=== PATIENT | male | born 1990 | race Caucasian/White ===

== ENCOUNTER 2020-09-28 08:06 | Inpatient (IN) | payer OTHER ==
[~2020-09-28] VITALS: Ht 182.9 cm; Wt 97.7 kg
[2020-09-28] VITALS (10 sets, daily range): BP systolic 113–146; BP diastolic 56–87; PULSE 59–74; TEMP 97.5–98.1
[~2020-09-28 08:06] MED LIST: CLINDAMYCIN300 MG PO; DOXYCYCLINE 10100 MG PO; NO HOME MEDICATIONS; UNABLE
--- NOTE | 2020-09-28 12:31 | NUR ---
PT TO ROOM 328 PER WHEEL CHAIR FROM ED. DR. RAMOS AND YEFRI CONNOLLY FLY SETTER IN TO SEE PT. SEE COMPUTER FOR ORDERS. ASSESSMETS COMPLETE AND VSS. PLAN ON SURGERY AROUND 1300.
--- NOTE | 2020-09-28 16:28 | NUR ---
PT TO ROOM 328 PER BED, REPORT FROM [facility] PACU @[id number]. PT IS A/O X4. LUNGS CTA, BOWEL SOUNDS PRESENT. LEFT ANKLE IN SPLINT WITH GOMEZ WRAP OVER SITE. TOES PINK, PEDAL PULSES POSTIVE. IV TO PUMP PER ORDERS. ICE WATER PROVIDED. VSS.
--- NOTE | 2020-09-28 19:52 | NUR ---
Pt currently resting in bed and has his call light within reach. Pt has his call light within reach. He has no concerns at this time.
[2020-09-29 00:28] VITALS: BP 125/57; PULSE 59; TEMP 97.5
[2020-09-29 04:40] VITALS: BP 117/74; PULSE 56; TEMP 97.9
--- NOTE | 2020-09-29 06:04 | NUR ---
Pt currently sitting up in bed. Pt slept well during the night. Pt has had no complaints of pain at this time. Pt was given pain medication only once during the shift. Pt did get up to the sink and used a walker and gait belt. Pt was NWB on his left leg. Pt did very well. Pt has his call light within reach. Pt requested coffee at this morning and was given coffee at this time.
--- NOTE | 2020-09-29 08:00 | NUR ---
Patient sitting up in bed watching TV. A&Ox4. VSS. IV CDI, fluids infusing. Left leg dressing CDI. Patient stating that he cant wiggle his toes, nurse informed the patient that he had a block in that foot. Foot warm and blood return. Will continue to monitor. No further needs expressed from the patient. Call light within reach
[2020-09-29 08:02] VITALS: BP 136/72; PULSE 65; TEMP 98.1
--- NOTE | 2020-09-29 10:15 | NUR ---
Discharge paperwork with the patient. Patient verbalized an understanding to follow doctors orders. IV removed, tip intact, gauze and coban covering. PT in with the patient. Waiting on patients ride to come and pick the patient. Call light within reach
--- NOTE | 2020-09-29 11:15 | NUR ---
Patient ambulated with crutches to the ER entrance. Discharge paperwork and personal belongings with the patient. No further needs expressed from the patient.
--- NOTE | 2020-09-29 14:00 | NUR ---
SW met with patient, plan to DC today. Patient reports that his ride is on the way. Patient reports that he does not have a PCP because he is always healthy. Patient reports that he uses [facility] on [address] for medications and will follow-up with Dr. Trevizo for Ortho. Patient indicated that he has everything and does not need any additional support. SW educated on supports available to him nothing further.
== END 2020-09-29 11:15 | disposition home or self-care (01) | DRG 494 ==
LOC: COL.ER 08:06 → JCC 10:09
PROVIDERS: ADMIT Orthopaedic Surgery
PROC: 0QSH04Z Reposition Left Tibia with Internal Fixation Device, Open Approach (ICD-10-PCS; principal; 2020-09-28 14:00)
PROC: 0SSG34Z Reposition Left Ankle Joint with Internal Fixation Device, Percutaneous Approach (ICD-10-PCS; 2020-09-28 14:00)
DX: S82.842A Displaced bimalleolar fracture of left lower leg, initial encounter for closed fracture (principal); S82.52XA Displaced fracture of medial malleolus of left tibia, initial encounter for closed fracture; S82.62XA Displaced fracture of lateral malleolus of left fibula, initial encounter for closed fracture; X58.XXXA Exposure to other specified factors, initial encounter; Y93.9 Activity, unspecified; Y92.69 Other specified industrial and construction area as the place of occurrence of the external cause; F17.200 Nicotine dependence, unspecified, uncomplicated
CPT/HCPCS: A9284; C1713; J0295; J0690; J1885; J2250; J2270; J2704; J3010; J7042; J7120

== ENCOUNTER 2023-09-05 18:09 | Emergency (ER) | payer SELFPAY ==
[~2023-09-05] VITALS: Ht 177.8 cm; Wt 90.9 kg
[2023-09-05 18:12] VITALS: TEMP 97.5
[2023-09-05] MEDS ORDERED: NS 1,000 ML IV ONE (18:15)
[2023-09-05] MEDS ORDERED: Ondansetron 4 MG/2 ML VIAL IV ONE (18:15)
[2023-09-05 18:39] LABS: BASO % 0.5 % (0.0-2.0); EOS # 0.1 K/mm3 (0.0-0.7); EOS % 1.7 % (0.0-4.0); GRAN # 4.7 K/mm3 (1.4-6.5); GRAN % 58.2 % (42.2-75.2); HEMATOCRIT 44.3 % (42.0-52.0); HEMOGLOBIN 15.3 g/dl (13.5-18.0); LYMPH # 2.6 K/mm3 (1.2-3.4); LYMPH % 32.5 % (20.0-51.0); MEAN CELL VOLUME 89 fl (80.0-100.0); MEAN CORPUSCULAR HEMOGLOBIN 31 pg (27-31); MEAN CORPUSCULAR HGB CONC 35 g/dl (33.0-37.0); MONO # 0.6 K/mm3 (0.1-0.6); MONO % 6.9 % (1.7-9.3); PLATELET COUNT 146 K/mm3 (130-400); RED BLOOD COUNT 4.98 M/mm3 (4.20-5.60); REDCELL DISTRIBUTION WIDTH-CV 12.3 % (11.5-14.5)
[2023-09-05 18:45] LABS: COLLECTION METHOD CATHETER
[2023-09-05 18:49] LABS: PH 5.5 (5.0-8.5); URINE APPEARANCE CLEAR (CLEAR/HAZY); URINE BLOOD NEGATIVE (NEGATIVE); URINE COLOR YELLOW (YELLOW); URINE GLUCOSE NEGATIVE (NEGATIVE); URINE KETONE NEGATIVE (NEGATIVE); URINE NITRATE NEGATIVE (NEGATIVE); URINE PROTEIN(semi-quant) NEGATIVE (NEGATIVE); URINE UROBILINOGEN 0.2 E.U/dL (0.2-1.0)
[2023-09-05 18:56] LABS: TRICYCLIC ANTIDEPRESS URINE NEGATIVE (NEGATIVE)
[2023-09-05 19:01] LABS: ALBUMIN 4.2 gm/dL (3.5-5.0); BILIRUBIN,TOTAL 0.5 mg/dL (0.2-1.2); CREATININE, serum 1.09 mg/dL (0.72-1.25); POTASSIUM 3.7 mmol/L (3.5-4.5); TOTAL PROTEIN 6.8 gm/dL (6.2-8.1)
[2023-09-06] MEDS ORDERED: NS 1,000 ML IV ONE (04:45)
[2023-09-06 05:47] VITALS: BP 114/71; PULSE 72
== END 2023-09-06 05:55 | disposition home or self-care (01) ==
LOC: COL.ER 18:09
PROVIDERS: Family Medicine
DX: S00.81XA Abrasion of other part of head, initial encounter (principal); S00.511A Abrasion of lip, initial encounter; S00.31XA Abrasion of nose, initial encounter; F10.129 Alcohol abuse with intoxication, unspecified; Y90.8 Blood alcohol level of 240 mg/100 ml or more; X58.XXXA Exposure to other specified factors, initial encounter; Y92.59 Other trade areas as the place of occurrence of the external cause
CPT/HCPCS: J2405; J7030